=== PATIENT | male | born 1995 | race African-American/Black ===

== ENCOUNTER 2017-11-18 17:40 | Emergency (ER) | payer MEDICAID ==
[~2017-11-18] VITALS: Ht 193 cm; Wt 86.2 kg
[~2017-11-18 17:40] MED LIST: ARIP15TA1 PO; BUPR150T12 PO; CLON0.1T42 PO; LAM200 PO; LISD70CA PO; RISP1TAB1 PO
[2017-11-18 17:47] VITALS: BP 135/83
--- NOTE | 2017-11-18 18:14 | NUR ---
PT AMBULATES TO BED 6
[2017-11-18] MEDS ORDERED: NACL 0.9% 1,000 ML IV ONE (18:23)
--- NOTE | 2017-11-18 18:30 | NUR ---
PATIENT PRESENTS TO ED FOR SUICIDAL IDEATION. PATIENT STATES HE HAS A PLAN TO HANG HIMSELF. PATIENT IS HOMELESS AND SLEEPS IN AREAS AROUND PAWNEE. PATIENT HAS APPARENT WOUNDS ON BACK. DENIES N/V/D; AAOX4 WITH EVEN AND STEADY GAIT; LUNGS CLEAR BL; HR EVEN AND REGULAR; PT DENIES ANY FEVER, CP, SOB, OR COUGH AT THIS TIME; PATIENT STATES PAIN OF 10/10 GENERALIZED AT THIS TIME; VSS; PATIENT POSITIONED FOR COMFORT; HOB ELEVATED; BEDRAILS UP X2; BED DOWN. ER MD MADE AWARE OF PT STATUS.
--- NOTE | 2017-11-18 18:45 | NUR ---
5150 HOLD PLACED BY MARISOL CAMPOS RN
[2017-11-18 19:10] LABS: BASOPHILS # (AUTO) 0.1 K/uL (0.00-0.22); EOSINOPHILS # (AUTO) 0.3 K/uL (0-0.4); EOSINOPHILS % (AUTO) 5.9 % (0.0-4.0); HEMATOCRIT 40.7 % (36-52); HEMOGLOBIN 13.4 g/dL (12.0-18.0); LYMPHOCYTES # (AUTO) 1.1 K/uL (2.0-11.5); LYMPHOCYTES % (AUTO) 20.8 % (20.5-51.1); MEAN CORPUSCULAR HEMOGLOBIN 28 pg (27-31); MEAN CORPUSCULAR HGB CONC 33 g/dL (33-37); MONOCYTES # (AUTO) 0.8 K/uL (0.8-1.0); NEUTROPHILS % (AUTO) 56.7 % (42.2-75.2); PLATELET COUNT (AUTO) 195 K/uL (140-450); RED BLOOD CELL COUNT(AUTO) 4.74 MIL/uL (4.20-6.10); RED CELL DISTRIBUTION WIDTH 13.9 % (11.6-13.7); WHITE BLOOD COUNT (AUTO) 5.2 K/uL (4.5-11.0)
--- NOTE | 2017-11-18 19:15 | NUR ---
PATIENT RESTING AT THIS TIME; NOTED CHEST RISE AND FALL; NO SIGNS OF DISTRESS.
--- NOTE | 2017-11-18 19:15 | NUR ---
RECEIVED REPORT FROM DADA ANTHONY. TRANSFER OF CARE AT THIS TIME.
[2017-11-18 19:19] LABS: CARBON DIOXIDE 29.5 mmol/L (21-32); CHLORIDE 105 mmol/L (98-107); CREATININE 0.9 mg/dL (0.7-1.3); GFR ARICAN-AMERICAN 138 mL/min (>90); GLUCOSE 98 mg/dL (74-106); POTASSIUM 3.5 mmol/L (3.5-5.1); SODIUM SERUM 140 mmol/L (136-145); UREA NITROGEN, BLOOD 9 mg/dL (7-18)
[2017-11-18 19:25] LABS: ALBUMIN 3.9 g/dL (3.4-5.0); ASPARTATE AMINOTRANSFERASE 26 U/L (15-37); TOTAL BILIRUBIN 0.4 mg/dL (0.0-1.0)
[2017-11-18 19:28] LABS: SALICYLATE < 2.8 mg/dL (2.8-20.0)
[2017-11-18 19:29] LABS: ACETAMINOPHEN < 0.5 ug/ml (10-30)
[2017-11-18 19:34] LABS: MONOCYTES % (AUTO) 15.6 % (1.7-9.3)
[2017-11-18 20:14] LABS: APPEARANCE,URINE CLEAR (CLEAR); BILIRUBIN,URINE NEGATIVE (NEGATIVE); BLOOD, URINE NEGATIVE (NEGATIVE); COLOR,URINE YELLOW (YELLOW); LEUKOCYTE ESTERASE ,URINE NEGATIVE (NEGATIVE); NITRITE, URINE NEGATIVE (NEGATIVE); UGLUCOSE NEGATIVE (NEGATIVE)
--- NOTE | 2017-11-18 20:15 | NUR ---
PATIENT RESTING AT THIS TIME; NOTED CHEST RISE AND FALL; NO SIGNS OF DISTRESS.
[2017-11-18 20:20] LABS: BARBITURATE, URINE NEG. ng/ml (NEG <=200); BENZODIAZEPINE, URINE NEG. ng/mL (NEG <=200); CANNABINOID, URINE POS. ng/mL (NEG <=50); COCAINE, URINE NEG. ng/mL (NEG <=300); OPIATE, URINE NEG. ng/mL (NEG <=2000); PHENCYCLIDINE SCREEN,URINE NEG. ng/mL (NEG <=25)
--- NOTE | 2017-11-18 20:45 | NUR ---
DR. DEE TELEPSYCH REQUESTING INFO REGARDING PATIENT.
--- NOTE | 2017-11-18 20:50 | NUR ---
DR. DEE BEAMED IN FOR PSYCH CONSULT WITH PT.
--- NOTE | 2017-11-18 21:00 | NUR ---
DR. DEE RECOMMENDED TO CONTINUE 5150 HOLD; FIND PSYCH FACILITY PLACEMENT; ONLY GIVE MEDS PRN. ER MD COKER NOTIFIED.
--- NOTE | 2017-11-18 21:15 | NUR ---
PATIENT RESTING AT THIS TIME; NOTED CHEST RISE AND FALL; NO SIGNS OF DISTRESS.
--- NOTE | 2017-11-18 22:15 | NUR ---
PATIENT RESTING AT THIS TIME; NOTED CHEST RISE AND FALL; NO SIGNS OF DISTRESS.
--- NOTE | 2017-11-18 22:58 | NUR ---
Faxed packet to [facility] , intake Micaela stated" there are no vacancy at this time , will keep packet and give to morning shift" ,Also packet faxed to [facility] intake stated there are no vacancy at this time, ER scanning clerk made aware .
--- NOTE | 2017-11-18 23:15 | NUR ---
PATIENT RESTING AT THIS TIME; NOTED CHEST RISE AND FALL; NO SIGNS OF DISTRESS.
--- NOTE | 2017-11-19 00:15 | NUR ---
PATIENT RESTING AT THIS TIME; NOTED CHEST RISE AND FALL; NO SIGNS OF DISTRESS.
--- NOTE | 2017-11-19 01:15 | NUR ---
PATIENT RESTING AT THIS TIME; NOTED CHEST RISE AND FALL; NO SIGNS OF DISTRESS.
--- NOTE | 2017-11-19 01:59 | NUR ---
PT SLEEPING COMFORTABLY IN BED, RR EVEN AND UNLABORED. 1:1 SITTER WITH CLOSE MONITORING AND SAFETY MEASURES ENSURED, ALL NEEDS MET.
--- NOTE | 2017-11-19 02:15 | NUR ---
PATIENT RESTING AT THIS TIME; NOTED CHEST RISE AND FALL; NO SIGNS OF DISTRESS.
--- NOTE | 2017-11-19 03:00 | NUR ---
CALLED [facility] [place] [phone] TO FOLLOW UP ON PACKET;PER CRYSTAL THEY HAVE A BED AVAILABLE AT 0800, MIGHT BE ABLE TO RECEIVE PT EARLIER IF PT BEING EVALUATED BY THEIR MAT TEAM DOES NOT MEET CRITERIA
--- NOTE | 2017-11-19 03:05 | NUR ---
CALLED [facility];INFORMED HIM THAT ERMD OK WITH 0800 TRANSFER, HE WILL CALL BACK IN 30 MINS WITH ACCEPTING INFORMATION
--- NOTE | 2017-11-19 03:15 | NUR ---
PATIENT RESTING AT THIS TIME; NOTED CHEST RISE AND FALL; NO SIGNS OF DISTRESS.
--- NOTE | 2017-11-19 03:50 | NUR ---
FROM [facility] CALLED FOR PT ACCEPTANCE. PT WILL GO TO UNIT 1, UNDER DR. LUQUE.
--- NOTE | 2017-11-19 03:55 | NUR ---
NURSE TO NURSE PHONE NUMBER [phone]. WILL CALL AT [phone].
--- NOTE | 2017-11-19 04:15 | NUR ---
PATIENT RESTING AT THIS TIME; NOTED CHEST RISE AND FALL; NO SIGNS OF DISTRESS.
--- NOTE | 2017-11-19 04:24 | NUR ---
spoke to DEBORAH hernández at [facility] [phone] , verified placement for pt , bed will be ready 8am .
--- NOTE | 2017-11-19 05:15 | NUR ---
PATIENT RESTING AT THIS TIME; NOTED CHEST RISE AND FALL; NO SIGNS OF DISTRESS.
--- NOTE | 2017-11-19 06:15 | NUR ---
PATIENT RESTING AT THIS TIME; NOTED CHEST RISE AND FALL; NO SIGNS OF DISTRESS.
--- NOTE | 2017-11-19 07:11 | NUR ---
RECEIVED REPORT FROM JAQUAN ANTHONY FOR CONTINUITY OF CARE. PT RESTING IN NO APPEARENT DISTRESS, RR EVEN AND UNLABORED. NO S/S OF DISTRESS NOTED AT THIS TIME.
--- NOTE | 2017-11-19 07:48 | NUR ---
PT GIVEN FOOD TRAY.
[2017-11-19 07:50] VITALS: BP 135/54
--- NOTE | 2017-11-19 07:50 | NUR ---
Patient to be transferred to [facility]. Is being transferred due to 5150 HOLD. Receiving facility has accepting physician and available space. ER physician has signed transfer form. Patient or responsible republican has agreed to transfer and signed form. Patient belongings inventoried and will be sent with patient. Copy of nursing notes, lab reports, EKG, Physicians Orders and X-rays to be sent with patient. Report called to CRYSTAL at receiving facility. [facility] 1221 ambulance for transfer.
== END 2017-11-19 07:50 ==
LOC: MED 17:40
DX: F32.9 Major depressive disorder, single episode, unspecified (principal); R45.851 Suicidal ideations; Z88.8 Allergy status to other drugs, medicaments and biological substances; Z79.899 Other long term (current) drug therapy
CPT/HCPCS: 36415; 80053; 80305; 81003; 85025; 99285; G0480; G0482

== ENCOUNTER 2017-11-26 16:46 | Emergency (ER) | payer MEDICAID ==
[~2017-11-26] VITALS: Ht 193 cm; Wt 87.1 kg
[2017-11-26 17:00] VITALS: BP 114/60
[2017-11-26 18:01] LABS: ALBUMIN 3.9 g/dL (3.4-5.0); ASPARTATE AMINOTRANSFERASE 22 U/L (15-37); TOTAL BILIRUBIN 0.3 mg/dL (0.0-1.0)
[2017-11-26 18:02] LABS: BARBITURATE, URINE NEG. ng/ml (NEG <=200); BENZODIAZEPINE, URINE NEG. ng/mL (NEG <=200); CANNABINOID, URINE POS. ng/mL (NEG <=50); COCAINE, URINE NEG. ng/mL (NEG <=300); OPIATE, URINE NEG. ng/mL (NEG <=2000); PHENCYCLIDINE SCREEN,URINE NEG. ng/mL (NEG <=25)
[2017-11-26 18:02] LABS: ANION GAP 10.9 (8-16); CARBON DIOXIDE 28.7 mmol/L (21-32); CHLORIDE 104 mmol/L (98-107); GFR ARICAN-AMERICAN 123 mL/min (>90); GLUCOSE 89 mg/dL (74-106); POTASSIUM 3.6 mmol/L (3.5-5.1); SODIUM SERUM 140 mmol/L (136-145); UREA NITROGEN, BLOOD 8 mg/dL (7-18)
[2017-11-26 18:06] LABS: BILIRUBIN,URINE NEGATIVE (NEGATIVE); BLOOD, URINE NEGATIVE (NEGATIVE); COLOR,URINE YELLOW (YELLOW); LEUKOCYTE ESTERASE ,URINE TRACE (NEGATIVE); NITRITE, URINE NEGATIVE (NEGATIVE); PH,URINE 7.5 (5.0-9.0); UGLUCOSE NEGATIVE (NEGATIVE)
[2017-11-26 18:11] LABS: HEMATOCRIT 42.3 % (36-52); HEMOGLOBIN 13.8 g/dL (12.0-18.0); MEAN CORPUSCULAR HEMOGLOBIN 29 pg (27-31); MEAN CORPUSCULAR HGB CONC 33 g/dL (33-37); MEAN CORPUSCULAR VOLUME 87.8 fL (80-94); PLATELET COUNT (AUTO) 266 K/uL (140-450); RED BLOOD CELL COUNT(AUTO) 4.82 MIL/uL (4.20-6.10); RED CELL DISTRIBUTION WIDTH 12.6 % (11.6-13.7); WHITE BLOOD COUNT (AUTO) 7.7 K/uL (4.5-11.0)
[2017-11-26 18:12] LABS: BASOPHILS # (AUTO) 0.1 K/uL (0.00-0.22); BASOPHILS % (AUTO) 0.9 % (0.0-2.0); EOSINOPHILS # (AUTO) 0.3 K/uL (0-0.4); EOSINOPHILS % (AUTO) 3.3 % (0.0-4.0); LYMPHOCYTES # (AUTO) 2.5 K/uL (2.0-11.5); LYMPHOCYTES % (AUTO) 32.2 % (20.5-51.1); MONOCYTES # (AUTO) 0.5 K/uL (0.8-1.0); MONOCYTES % (AUTO) 5.9 % (1.7-9.3); NEUTROPHILS # (AUTO) 4.3 K/uL (1.8-7.7); NEUTROPHILS % (AUTO) 57.7 % (42.2-75.2)
[2017-11-26 18:20] LABS: APPEARANCE,URINE HAZY (CLEAR)
[2017-11-26 18:28] LABS: RBC,URINE NONE SEEN /HPF (0-5)
[2017-11-26] MEDS: CEPHALEXIN 500 MG CAP PO ONE (18:45)
[2017-11-27 00:08] VITALS: BP 123/68
== END 2017-11-27 00:08 | disposition short-term general hospital (02) ==
LOC: MED 16:46
DX: F32.9 Major depressive disorder, single episode, unspecified (principal); N39.0 Urinary tract infection, site not specified; F15.90 Other stimulant use, unspecified, uncomplicated; R45.851 Suicidal ideations; Z88.8 Allergy status to other drugs, medicaments and biological substances; Z79.899 Other long term (current) drug therapy
CPT/HCPCS: 36415; 80053; 80305; 81001; 85025; 87086; 99285; G0482